=== PATIENT | male | born 2000 | race Caucasian/White ===

== ENCOUNTER → 2024-12-13 06:37 | Outpatient (CLI) | payer OTHER, SELFPAY ==
--- NOTE | 2024-12-13 06:40 | DI.CT.S_ITS ---
PROCEDURE: CT WRIST LEFT WITHOUT CON INDICATIONS: Left Wrist Fracture TECHNIQUE: Noncontrast 1 mm axial sections acquired through the carpal bones, with coronal and sagittal reformats. COMPARISON: None. FINDINGS: Image quality: Excellent. Bones: Mildly comminuted, nondisplaced, intra articular fracture of the distal radius. Mild ulnar negative variance. Small sclerotic lesion in the trapezoid, nonspecific and may represent a bone island. Patient is imaged in a cast. Soft tissues: The flexors, and the extensor tendons are grossly intact. IMPRESSION: Mildly comminuted, nondisplaced, intra-articular fracture of the distal radius. Dictated by: Anne Santos M.D. on 12/13/2024 at 9:24 Approved by: Anne Santos M.D. on 12/13/2024 at 9:29
== END ==
DX: S52.572A Other intraarticular fracture of lower end of left radius, initial encounter for closed fracture (principal); X58.XXXA Exposure to other specified factors, initial encounter
CPT/HCPCS: 73200